=== PATIENT | female | born 1995 | race Caucasian/White ===

== ENCOUNTER 2018-08-26 13:39 | Outpatient (CLI) | payer OTHER ==
[~2018-08-26] VITALS: Ht 175.3 cm; Wt 66.4 kg
[2018-08-26 14:08] VITALS: BP 91/67; PULSE 92; RESP 18; Ht 175.3 cm; Wt 66.4 kg
--- NOTE | 2018-08-29 22:42 | HP ---
DATE OF ADMISSION: 08/26/2018 HISTORY OF PRESENT ILLNESS: This is a 22-year-old lady, 6, para 3 with 2 spontaneous abortio ns, EDC 01/11/2019 at 20 and 1/7 weeks , admitted for observation because of lower abdominal pains and low back pain that started about a few hours prior to admission. She had care at Dr. Ornelas's office and the care was uneventful. PAST PERSONAL HISTORY: No history of diabetes, TB, asthma. ALLERGIES: NO ALLERGIES. SOCIAL HISTORY: The patient does not smoke. She does not drink. MEDICATIONS: She does not take any drugs except her iron and vitamins. GYNECOLOGICAL HISTORY: She had menarche at the age of 10, every 28 days interval, 3 to 4 days durati on, and moderate in amount. OBSTETRICAL HISTORY: Noncontributory. She is 6, para 3 with 2 spontaneous abortions. All normal deliveries. REVIEW OF SYSTEMS: CARDIOVASCULAR: No chest pains. RESPIRATORY: No cough. GASTROINTESTINAL: No diarrhea, no vomiting. GENITOURINARY: No dysuria. PHYSICAL EXAMINATION: GENERAL: Reveals a conscious, coherent lady and in no acute distress. VITAL SIGNS: Her blood pressure 120/80, pulse rate 80 per minute, respirations 16 per minute. BREASTS, HEART AND LUNGS: Within normal limits. ABDOMEN: Soft. No organomegaly. Fundic height 20 cm. heart tones 140 per minute. PELVIC: Revealed the cervix to be closed. No bleeding noted. BACK: No CVA tenderness. EXTREMITIES: No calf tenderness. IMPRESSION: This 20 and 1/7 weeks intrauterine , rule out urinary tract infection and rule out dehydration. The patient had blood tests done, CBC and urinalysis, everything was normal. Baby was normal. After a few hours of observation. The patient felt well. No more lower abdominal pains and low back pains. She was discharged home in good and stable condition and general diet and activ ity was restricted. She was counseled. She was instructed. She was told to keep appointment in the clinic. FINAL DIAGNOSIS: 20 and 1/7 weeks intrauterine with lower back pain. Dictated By: TAVON SIDHU/JAZMÍN Conf#: [id number] DID#: [id number] CC: BRUNO ORNELAS MD;*EndCC*
== END 2018-08-26 16:00 | disposition home or self-care (01) ==
LOC: L-D 13:39 → OBT 13:39
PROVIDERS: ATTEND Obstetrics & Gynecology
DX: O26.892 Other specified pregnancy related conditions, second trimester (principal); M54.5 Low back pain; R10.30 Lower abdominal pain, unspecified; Z3A.20 20 weeks gestation of pregnancy
CPT/HCPCS: 76815; 81001; 85025; Z7500; G0463

== ENCOUNTER 2018-09-16 21:39 | Outpatient (CLI) | payer OTHER ==
[~2018-09-16] VITALS: Ht 175.3 cm; Wt 66.9 kg
[2018-09-16 22:05] VITALS: BP 110/61; PULSE 94; RESP 18
[2018-09-16] MEDS ORDERED: ALBU8.5H8 INH (22:25)
[2018-09-16 22:26] VITALS: Ht 175.3 cm; Wt 66.9 kg
--- NOTE | 2018-09-17 00:07 | PN ---
Triage Information Date/Time September 17, 2018 Reason for visit: DFM Weeks of Gestation 20w 6d /Para 6/3 Diabetes: none Hypertention: none Additional information Pt also c/o a URI with green phlegm production. No fever,chills, nausea or vomiting. PMHx: asthma. PSHx: none. POBHx: x 3. All: Acetaminphen.ocycodone. Objective Vital Signs Date Temp Pulse Resp B/P (MAP) Pulse Ox O2 O2 Flow FiO2 Time Delivery Rate 09/16/18 98.3 94 18 110/61 Room Air 22:05 (77) Heart Rate: 150's Contractions: None Disposition: Discharge Assessment/Plan A: IUP at 20w 6d. Decreased movement. URI. P: D/C home. Rx Z-Cristopher and PNV (per pt request). EMORY JOSEPH MD September 17, 2018 00:07
--- NOTE | 2018-09-17 00:11 | TRIAGE ---
OB Triage Datetime Report Generated by CPN: 09/17/2018 00:10 Datetime: 09/16/2018 22:16 Time of Arrival: 09/16/2018 21:35 EGA: 20.6 Arrived By: Ambulatory Arrived From: Home Chief Complaint: DFM Movement: Decreased Contractions: Denies/Absent Rupture of Membranes: Denies Vaginal Bleeding: None Vaginal Discharge: Denies Recent Sexual Intercouse: Denies Abdominal Trauma: Not Applicable Patient Complaints: Other Additional Patient Complaints: Cold symptoms Time Provider Notified: 09/16/2018 22:30 Provider Notified: Dr. Snyder Initial Plan: CEFM Datetime: 09/16/2018 22:05 Stage of : OB Triage Assessment Type: Triage Maternal Assessment Level of Consciousness: Fully Conscious DTR's/Clonus: DTRs 2+; No Clonus Headache: Denies Blurred Vision: No Respiratory Effort: Unlabored; Regular Rhythm; Equal Expansion Breath Sounds, Left: Clear and Equal Breath Sounds, Right: Clear and Equal Nausea/Vomiting: Denies RUQ Epigastric Pain: Denies Lower Extremities Edema: None Degree: None Upper Extremities Edema: None Degree: None Facial Edema: None Temperature Route: Oral Fall Risk Assessment History of Falling: (0) No Secondary Diagnosis: (0) No Ambulatory Aid: (0) Bedrest/Nurse Assist IV Therapy: (0) No Gait: (0) Normal/Bedrest/Immobile Mental Status: (0) Oriented to Own Ability Fall Score: 0 Fall Risk Score Definition: No Risk: No action required Pain Assessment Pain Scale: 0 Pain Presence: None/Denies Pain Type: N/A Datetime: 08/26/2018 16:00 Stage of : OB Triage Datetime: 08/26/2018 15:45 Labor Evaluation Frequency: 0 Monitor Mode: External Contraction Comments: abdomen soft on palpation Pain Assessment Pain Scale: 0 Pain Presence: None/Denies Pain Type: N/A Vaginal Exam Membrane Status: Intact Datetime: 08/26/2018 15:00 Stage of : OB Triage Labor Evaluation Frequency: 0 Monitor Mode: External Pain Assessment Pain Scale: 0 Pain Presence: None/Denies Pain Type: N/A Datetime: 08/26/2018 13:59 Stage of : OB Triage Labor Evaluation Frequency: 0 Monitor Mode: External Resting Tone [place]: Relaxed Contraction Comments: ABDOMEN SOFT ON PALPATION Heart Rate FHR Baseline Rate: 155 Monitor Mode: External US Comments: off due to GA Datetime: 08/26/2018 13:53 Stage of : OB Triage Maternal Assessment Level of Consciousness: Fully Conscious DTR's/Clonus: DTRs 2+; No Clonus Headache: Denies Blurred Vision: No Respiratory Effort: Unlabored; Regular Rhythm; Equal Expansion Breath Sounds, Left: Clear and Equal Breath Sounds, Right: Clear and Equal Nausea/Vomiting: Denies RUQ Epigastric Pain: Denies Lower Extremities Edema: None Degree: None Upper Extremities Edema: None Degree: None Facial Edema: None Temperature Route: Axillary Fall Risk Assessment History of Falling: (0) No Secondary Diagnosis: (0) No Ambulatory Aid: (0) Bedrest/Nurse Assist IV Therapy: (0) No Gait: (0) Normal/Bedrest/Immobile Mental Status: (0) Oriented to Own Ability Fall Score: 0 Fall Risk Score Definition: No Risk: No action required Monitor Mode: External US Pain Presence: Constant Pain Location: Back Datetime: 08/26/2018 13:50 Time of Arrival: 08/26/2018 13:50 EGA: 17.6 Chief Complaint: back lower pain, 2 hrs Movement: Present Contractions: Denies/Absent Time Contractions Began: 08/26/2018 11:00 Rupture of Membranes: Denies Vaginal Bleeding: Dark Red Vaginal Discharge: Denies Recent Sexual Intercouse: Denies Abdominal Trauma: Not Applicable Patient Complaints: Other Initial Plan: monitors applied Datetime: 08/26/2018 13:47 Comments: applied
== END 2018-09-17 00:05 | disposition home or self-care (01) ==
LOC: OBT 21:39 → L-D 21:42 → OBT 09-17 00:05
PROVIDERS: ATTEND Obstetrics & Gynecology
DX: O36.8120 Decreased fetal movements, second trimester, not applicable or unspecified (principal); O99.512 Diseases of the respiratory system complicating pregnancy, second trimester; J06.9 Acute upper respiratory infection, unspecified; J45.909 Unspecified asthma, uncomplicated; Z3A.20 20 weeks gestation of pregnancy
CPT/HCPCS: G0463

== ENCOUNTER 2018-10-13 18:00 | Emergency (ER) | payer OTHER ==
[~2018-10-13] VITALS: Ht 170.2 cm; Wt 68.2 kg
[~2018-10-13 18:00] MED LIST: ALBU8.5H8 INH
[2018-10-13 18:03] VITALS: Ht 170.2 cm; Wt 68.2 kg
[2018-10-13] MEDS ORDERED: SOD CHLORIDE 0.9% 1,000 ML IV STA (18:06)
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
[2018-10-13] MEDS ORDERED: ONDANSETRON 4 MG INJ IV ONE (18:30)
[2018-10-13] MEDS ORDERED: morphine 4 MG/ML VIAL IV ONE (18:30)
[2018-10-13] MEDS ORDERED: HYDROCODONE/APAP (10/325) TAB PO ONE (19:00)
[2018-10-13] MEDS ORDERED: HYDR-4011 PO (19:01)
[2018-10-13 19:36] VITALS: BP 93/76; PULSE 79; RESP 16
[2018-10-13] MEDS ORDERED: PREN-19 PO (21:18)
== END 2018-10-13 19:55 | disposition home or self-care (01) ==
LOC: E/R 18:00
DX: O9A.212 Injury, poisoning and certain other consequences of external causes complicating pregnancy, second trimester (principal); T21.22XA Burn of second degree of abdominal wall, initial encounter; T24.102A Burn of first degree of unspecified site of left lower limb, except ankle and foot, initial encounter; T20.17XA Burn of first degree of neck, initial encounter; T24.112A Burn of first degree of left thigh, initial encounter; O99.512 Diseases of the respiratory system complicating pregnancy, second trimester; J45.909 Unspecified asthma, uncomplicated; X12.XXXA Contact with other hot fluids, initial encounter; Y92.9 Unspecified place or not applicable; Z3A.25 25 weeks gestation of pregnancy
CPT/HCPCS: 16000; 80053; 85025; J2270; J2405; J7030; Z7610; 96361; 96374; 96375

== ENCOUNTER 2018-10-13 20:00 | Outpatient (CLI) | payer OTHER ==
[~2018-10-13] VITALS: Ht 175.3 cm; Wt 66.8 kg
[~2018-10-13 20:00] MED LIST changes: +HYDR-4011 PO
[2018-10-13 20:30] VITALS: BP 101/55; PULSE 72; RESP 18
[2018-10-13] MEDS ORDERED: PREN-19 PO (21:18)
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
== END 2018-10-13 22:00 | disposition home or self-care (01) ==
LOC: OBT 20:00 → L-D 20:02 → OBT 22:00
PROVIDERS: ATTEND Obstetrics & Gynecology
DX: O9A.212 Injury, poisoning and certain other consequences of external causes complicating pregnancy, second trimester (principal); T21.22XA Burn of second degree of abdominal wall, initial encounter; T20.17XA Burn of first degree of neck, initial encounter; T31.0 Burns involving less than 10% of body surface; X16.XXXA Contact with hot heating appliances, radiators and pipes, initial encounter; Y93.89 Activity, other specified; Y92.89 Other specified places as the place of occurrence of the external cause; Y99.8 Other external cause status; Z3A.24 24 weeks gestation of pregnancy
CPT/HCPCS: 76817; 81001; 87086; Z7500; 81003; G0463

== ENCOUNTER 2018-12-16 22:49 | Inpatient (IN) | payer OTHER ==
[~2018-12-16 22:49] MED LIST changes: -ALBU8.5H8 INH; +AMOX500C2 PO; +PREN-19 PO
[2018-12-17] MEDS ORDERED: ONDANSETRON 4 MG INJ IV PRN (00:30)
[2018-12-17] MEDS ORDERED: BETAMET NA PHOS/AC(6 MG/ML) 2 ML INJ SYG IM SCH (00:30)
[2018-12-17] MEDS ORDERED: LACTATED RINGER'S 500 ML IV ONE (00:30)
[2018-12-17] MEDS: LACTATED RINGER'S 1,000 ML IV SCH ×2 (02:00→06:20)
[2018-12-17] MEDS ORDERED: PRENATAL VITAMIN PO SCH (09:00)
[2018-12-17] MEDS ORDERED: DOCUSATE SODIUM 100 MG CAP PO SCH (09:00)
== END 2018-12-17 18:10 | disposition home or self-care (01) | DRG 833 ==
LOC: OBT 22:49 → L-D 22:51 → OBT 23:50 → L-D 23:50
PROVIDERS: ADMIT Obstetrics & Gynecology; ATTEND Obstetrics & Gynecology
DX: O26.853 Spotting complicating pregnancy, third trimester (principal); Z3A.34 34 weeks gestation of pregnancy
CPT/HCPCS: 76815; 76818; 80053; 80307; 85025; 85384; 85610; 85730; 86592; 86850; 86900; 86901; 87340; G0463; J0702; J7120

== ENCOUNTER 2018-12-20 23:51 | Outpatient (CLI) | payer OTHER ==
[~2018-12-20] VITALS: Ht 175.3 cm; Wt 71.8 kg
[~2018-12-20 23:51] MED LIST changes: -HYDR-4011 PO
[2018-12-21 00:11] VITALS: Ht 175.3 cm; Wt 71.8 kg
[2018-12-21 00:12] VITALS: BP 102/58; PULSE 91; RESP 17
== END 2018-12-21 01:28 | disposition home or self-care (01) ==
LOC: OBT 23:51 → L-D 23:51 → OBT 12-21 01:28
PROVIDERS: ATTEND Obstetrics & Gynecology
DX: O36.8130 Decreased fetal movements, third trimester, not applicable or unspecified (principal); Z3A.34 34 weeks gestation of pregnancy
CPT/HCPCS: 76818; Z7500; G0463

== ENCOUNTER 2019-01-08 12:02 | Outpatient (CLI) | payer OTHER ==
[~2019-01-08] VITALS: Ht 175.3 cm; Wt 73.2 kg
[~2019-01-08 12:02] MED LIST changes: +ACET500C5 PO; +CLIN300C10 PO; +IBUP-1542 PO
[2019-01-08 12:48] VITALS: Ht 175.3 cm; Wt 73.2 kg
[2019-01-08 12:49] VITALS: BP 104/59; PULSE 95; RESP 18
== END 2019-01-08 15:40 | disposition home or self-care (01) ==
LOC: OBT 12:02 → L-D 12:03 → OBT 15:40
PROVIDERS: ATTEND Obstetrics & Gynecology
DX: O62.9 Abnormality of forces of labor, unspecified (principal); Z3A.37 37 weeks gestation of pregnancy
CPT/HCPCS: 76818; Z7500; G0463